=== PATIENT | male | born 1965 | race Caucasian/White ===

== ENCOUNTER 2021-06-12 12:43 | Emergency (ER) | payer OTHER ==
[~2021-06-12] VITALS: Ht 190.5 cm; Wt 93.0 kg
[~2021-06-12 12:43] MED LIST: KEFLEX500 MG PO; MOTRIN800 MG PO; NORFLEX100 MG PO
[2021-06-12] MEDS ORDERED: TYLENOL325 M1 PO (14:51)
[2021-06-12] MEDS ORDERED: NAPROXEN250 MG PO (14:51)
== END 2021-06-12 15:00 | disposition home or self-care (01) ==
LOC: ED 12:43
DX: S93.401A Sprain of unspecified ligament of right ankle, initial encounter (principal); F17.200 Nicotine dependence, unspecified, uncomplicated; Z88.0 Allergy status to penicillin; W01.10XA Fall on same level from slipping, tripping and stumbling with subsequent striking against unspecified object, initial encounter; Y93.89 Activity, other specified; Y92.89 Other specified places as the place of occurrence of the external cause; Y99.8 Other external cause status

== ENCOUNTER 2024-09-24 16:42 | Emergency (ER) | payer SELFPAY ==
[~2024-09-24] VITALS: Ht 190.5 cm; Wt 99.8 kg
[~2024-09-24 16:42] MED LIST changes: +NAPROXEN250 MG PO; +TYLENOL325 M1 PO
[2024-09-25] MEDS ORDERED: MELOXICAM15 MG PO (10:04)
== END 2024-09-24 19:37 | disposition left against medical advice (07) ==
LOC: ED 16:42
DX: M25.532 Pain in left wrist (principal); Z88.0 Allergy status to penicillin; Z53.21 Procedure and treatment not carried out due to patient leaving prior to being seen by health care provider

== ENCOUNTER 2024-09-25 08:53 | Emergency (ER) | payer SELFPAY ==
[~2024-09-25] VITALS: Wt 99.8 kg
[2024-09-25] MEDS ORDERED: Ketorolac Tromethamine 15 MG/ML VIAL IM ONE (09:40)
[2024-09-25] MEDS ORDERED: MELOXICAM15 MG PO (10:04)
== END 2024-09-25 10:15 | disposition home or self-care (01) ==
LOC: ED 08:53
DX: S63.502A Unspecified sprain of left wrist, initial encounter (principal); Z88.0 Allergy status to penicillin; W19.XXXA Unspecified fall, initial encounter; Y93.89 Activity, other specified; Y92.89 Other specified places as the place of occurrence of the external cause; Y99.8 Other external cause status

== ENCOUNTER 2025-02-25 17:53 | Emergency (ER) | payer MEDICAID ==
[~2025-02-25] VITALS: Ht 187.9 cm; Wt 97.5 kg
[~2025-02-25 17:53] MED LIST changes: +MELOXICAM15 MG PO
[2025-02-25] MEDS ORDERED: Dexamethasone Sodium Phospha 20 MG/5 ML VIAL IM ONE (19:15)
[2025-02-25] MEDS ORDERED: PREDNISONE20 M1 PO (22:21)
[2025-02-25] MEDS ORDERED: METHOCARBAMOL750 M1 PO (22:21)
[2025-02-25] MEDS ORDERED: METHOCARBAMOL 750 MG TAB PO ONE (22:25)
== END 2025-02-25 22:26 | disposition home or self-care (01) ==
LOC: ED 17:53
DX: M51.26 Other intervertebral disc displacement, lumbar region (principal); Z88.0 Allergy status to penicillin; Z88.8 Allergy status to other drugs, medicaments and biological substances